=== PATIENT | male | born 1990 | race Caucasian/White ===

== ENCOUNTER → 2020-05-05 | Outpatient (CLI) | payer OTHER ==
--- NOTE | 2020-05-05 21:33 | NM ---
EXAMINATION TYPE: NM hepatobiliary w EF DATE OF EXAM: 05/05/2020 COMPARISON: NONE HISTORY: Acute cholecystitis per order. Epigastric and abdominal pain with diminished appetite and vo miting. TECHNIQUE: After the intravenous administration of 5.48 mCi Tc 99m Mebrofenin hepatobiliary scintigra phy is performed. Immediate images post injection. FINDINGS: No initial images are obtained. The gallbladder is visualized within 15 minutes. The small bowel ac tivity is noted within 60 minutes. At one hour 8 ounces of oral ensure plus is given to mimic CCK an d gallbladder ejection fraction is calculated at 40 %, in the normal range. Therefore there is no sc intigraphic evidence of cystic or common bile duct obstruction to suggest acute cholecystitis or gall bladder dyskinesia. IMPRESSION: Exam is within normal limits.
== END | disposition home or self-care (01) ==
LOC: RADNMMAIN 12:55
PROVIDERS: ATTEND Family Medicine
DX: K81.0 Acute cholecystitis (principal)
CPT/HCPCS: 78226; A9537

== ENCOUNTER 2021-12-09 19:40 | Emergency (ER) | payer OTHER ==
[2021-12-09 20:58] VITALS: BP 121/74; PULSE 83; RESP 16; TEMP 97.1
[2021-12-09 21:51] LABS: Basophils % (A) 0 %; Eosinophils # (A) 0.3 k/uL (0-0.7); Eosinophils % (A) 3 %; HCT 45.5 % (39.0-53.0); HGB 15.2 gm/dL (13.0-17.5); Lymphocytes # (A) 2.4 k/uL (1.0-4.8); Lymphocytes % (A) 24 %; MCHC 33.4 g/dL (31.0-37.0); MCV 95.8 fL (80.0-100.0); Mean Platelet Volume 7.8; Monocytes # (A) 0.5 k/uL (0-1.0); Monocytes % (A) 5 %; Neutrophils # (A) 6.5 k/uL (1.3-7.7); Neutrophils % (A) 65 %; Platelet Count 302 k/uL (150-450); RBC 4.75 m/uL (4.30-5.90); RDW 13.2 % (11.5-15.5)
[2021-12-09 21:54] LABS: ALT 32 U/L (4-49); AST 35 U/L (17-59); African American GFR (CKD) >90 (>60 ml/min/1.73 sqM); Alkaline Phosphatase 130 U/L (38-126); Anion Gap 6 mmol/L; Blood Urea Nitrogen 14 mg/dL (9-20); Calcium 8.8 mg/dL (8.4-10.2); Carbon Dioxide 23 mmol/L (22-30); Chloride 106 mmol/L (98-107); Glucose 125 mg/dL (74-99); Non-African American GFR(CKD) >90 (>60 ml/min/1.73 sqM); Potassium 4.4 mmol/L (3.5-5.1); Sodium 135 mmol/L (137-145); Total Bilirubin 0.6 mg/dL (0.2-1.3); Total Protein 6.8 g/dL (6.3-8.2)
--- NOTE | 2021-12-09 22:05 | XR ---
EXAMINATION TYPE: XR KUB 3V DATE OF EXAM: 12/09/2021 CLINICAL HISTORY: pain TECHNIQUE: 3 upright views were obtained. COMPARISON: None. FINDINGS: Scattered gas is seen in non-distended small bowel loops. Gas and fecal material is seen in non-distended colon. There is no visceromegaly, pneumoperitoneum, or abnormal calcification appreciated. The lung bases are clear and the osseous structures are intact. IMPRESSION: No acute radiographic process.
[2021-12-09 22:29] LABS: Appearance,Urine Clear (Clear); Bilirubin,Urine Negative (Negative); Blood,Urine Negative (Negative); Color,Urine Yellow; Glucose,Urine (UA) Negative (Negative); Ketones,Urine Negative (Negative); Leukocyte Esterase,Urine Moderate (Negative); Mucus,Urine Few /hpf; Nitrite,Urine Negative (Negative); PH, Urine 5.5 (5.0-8.0); Protein,Urine Trace (Negative); RBC,Urine 1 /hpf (0-5); Specific Gravity,Urine 1.039 (1.001-1.035); Squamous Epithelial Cell,Urine 4 /hpf (0-4); WBC,Urine 7 /hpf (0-5)
[2021-12-09] MEDS ORDERED: KETOROLAC 15 MG/ML 1 ML VIAL IM STA ×2 (23:01→23:10)
--- NOTE | 2021-12-09 23:36 | CT ---
EXAMINATION TYPE: CT abdomen pelvis wo con DATE OF EXAM: 12/09/2021 COMPARISON: None HISTORY: ABDOMINAL/BACK PAIN CT DLP: 2254.4 mGycm Automated exposure control for dose reduction was used. Images obtained from the diaphragm through the floor of the pelvis without contrast. The lung bases are clear. There is no pleural effusion. Heart size is normal. No pericardial effusion . Liver spleen stomach pancreas gallbladder appear intact. Bile ducts are not dilated. There is no adre nal mass. Kidneys of normal size. There is no hydronephrosis. Ureters are not dilated. There is no re troperitoneal adenopathy. The bladder distends smoothly. There is no inguinal hernia. No free fluid i n the pelvis. No pelvic mass. Appendix is posterior and appears normal. The lumbar vertebra show normal spacing and alignment. Posterior elements are intact there is no comp ression fracture. Bony pelvis appears intact. Hip joints are intact. Sacroiliac joints appear normal. IMPRESSION: Negative CT scan of the abdomen and pelvis. Normal appendix.
[2021-12-10] MEDS ORDERED: BACLOFEN 10 MG TAB PO STA (00:08)
--- NOTE | 2021-12-10 00:12 | ED ---
General Adult HPI - General Chief complaint: Urogenital Stated complaint: Back pain Time Seen by Provider: 12/09/21 22:38 Source: patient Mode of arrival: ambulatory Limitations: no limitations - History of Present Illness Initial comments: Patient is a 31-year-old male who presents with a chief complaint of back pain. Patient states the back pain started yesterday. No recent injury. The pain is intermittent, left-sided with radiation to the left flank. Patient states he was diagnosed with a urinary tract infection 4 days ago at an urgent care. He states he was given doxycycline for urinary tract infection but has not picked up the medication yet. Patient denies history of UTI, kidney infection, and kidney stone. He denies fever, chills, and blood in the urine. Patient states the burning with urination he was originally experiencing is improving. Patient denies penile discharge. He has no concern for STIs. - Related Data Previous Rx's Medication Instructions Recorded Baclofen 10 mg PO TID 5 Days #15 tab 12/10/21 Allergies Allergy/AdvReac Type Severity Reaction Status Date / Time No Known Allergies Allergy Verified 12/09/21 20:58 Review of Systems ROS Statement: Those systems with pertinent positive or pertinent negative responses have been documented in the HPI. ROS Other: All systems not noted in ROS Statement are negative. Past Medical History Past Medical History: No Reported History History of Any Multi-Drug Resistant Organisms: None Reported Past Surgical History: No Surgical Hx Reported Past Psychological History: Anxiety, Depression Smoking Status: Current every day smoker Past Alcohol Use History: Occasional Past Drug Use History: Marijuana General Exam Limitations: no limitations General appearance: alert, in no apparent distress Head exam: Present: atraumatic, normocephalic, normal inspection Eye exam: Present: normal appearance, PERRL, EOMI. Absent: scleral icterus, conjunctival injection, periorbital swelling Neck exam: Present: normal inspection, full ROM Respiratory exam: Present: normal lung sounds bilaterally. Absent: respiratory distress, wheezes, rales, rhonchi, stridor Cardiovascular Exam: Present: regular rate, normal rhythm, normal heart sounds. Absent: systolic murmur, diastolic murmur, rubs, gallop, clicks GI/Abdominal exam: Present: soft, normal bowel sounds. Absent: distended, tenderness, guarding, rebound, rigid Back exam: Present: normal inspection, full ROM, CVA tenderness (L), paraspinal tenderness (Left lumbar). Absent: CVA tenderness (R), muscle spasm, vertebral tenderness Neurological exam: Present: alert, oriented X3, CN II-XII intact Psychiatric exam: Present: normal affect, normal mood Skin exam: Present: warm, dry, intact, normal color. Absent: rash Course Vital Signs 12/09/21 20:55 Temperature 97.1 F L Pulse Rate 83 Respiratory 16 Rate Blood Pressure 121/74 O2 Sat by Pulse 97 Oximetry Medical Decision Making - Medical Decision Making This is a 31-year-old male who presents with left back/flank pain after urinary tract infection diagnosis 4 days ago. Thorough history and examination were performed. Patient is afebrile. Normal pulse at 83. Patient has not started hi s doxycycline prescription yet urgent care. Patient reports improved dysuria. Urinalysis shows moderate leukocyte esterase and [address] of the abdomen and pelvis without contrast was obtained to rule out kidney stone and infection which was negative. Patient will be discharged with baclofen prescription for potential muscle strain. He was encouraged to take his previously prescribed doxycycline for urinary tract infection. Of note, patient asked for a GI referral for prior gallbladder issues. Patient states he had prior HIDA scan and was supposed to get his gallbladder removed but went to longterm. He states that he is not satisfied with his current GI specialist is seeking a new one. He is not experiencing gallbladder symptoms currently. Patient was referred to Dr. Burgess. Dr. Gibson is my attending. - Lab Data Result diagrams: 12/09/21 21:31 12/09/21 21:31 Lab Results 12/09/21 12/09/21 12/09/21 Range/Units 20:58 21:31 21:31 WBC 10.0 (3.8-10.6) k/uL RBC 4.75 (4.30-5.90) m/uL Hgb 15.2 (13.0-17.5) gm/dL Hct 45.5 (39.0-53.0) % MCV 95.8 (80.0-100.0) fL MCH 32.0 (25.0-35.0) pg MCHC 33.4 (31.0-37.0) g/dL RDW 13.2 (11.5-15.5) % Plt Count 302 (150-450) k/uL MPV 7.8 Neutrophils % 65 % Lymphocytes % 24 % Monocytes % 5 % Eosinophils % 3 % Basophils % 0 % Neutrophils # 6.5 (1.3-7.7) k/uL Lymphocytes # 2.4 (1.0-4.8) k/uL Monocytes # 0.5 (0-1.0) k/uL Eosinophils # 0.3 (0-0.7) k/uL Basophils # 0.0 (0-0.2) k/uL Sodium 135 L (137-145) mmol/L Potassium 4.4 (3.5-5.1) mmol/L Chloride 106 (98-107) mmol/L Carbon Dioxide 23 (22-30) mmol/L Anion Gap 6 mmol/L BUN 14 (9-20) mg/dL Creatinine 0.64 L (0.66-1.25) mg/dL Est GFR (CKD-EPI)AfAm >90 (>60 ml/min/1.73 sqM) Est GFR (CKD-EPI)NonAf >90 (>60 ml/min/1.73 sqM) Glucose 125 H (74-99) mg/dL Calcium 8.8 (8.4-10.2) mg/dL Total Bilirubin 0.6 (0.2-1.3) mg/dL AST 35 (17-59) U/L ALT 32 (4-49) U/L Alkaline Phosphatase 130 H (38-126) U/L Total Protein 6.8 (6.3-8.2) g/dL Albumin 4.0 (3.5-5.0) g/dL Urine Color Yellow Urine Appearance Clear (Clear) Urine pH 5.5 (5.0-8.0) Ur Specific [place] 1.039 H (1.001-1.035) Urine Protein Trace H (Negative) Urine Glucose (UA) Negative (Negative) Urine Ketones Negative (Negative) Urine Blood Negative (Negative) Urine Nitrite Negative (Negative) Urine Bilirubin Negative (Negative) Urine Urobilinogen 2.0 (<2.0) mg/dL Ur Leukocyte Esterase Moderate H (Negative) Urine RBC 1 (0-5) /hpf Urine WBC 7 H (0-5) /hpf Ur Squamous Epith Cells 4 (0-4) /hpf Urine Mucus Few H (None) /hpf Disposition Clinical Impression: Flank pain, Low back pain Disposition: HOME SELF-CARE Condition: Good Instructions (If sedation given, give patient instructions): Urinary Tract Infection in Men (ED), Back Pain (ED) Additional Instructions: Please take medication as directed. Do not drink alcohol or operate machinery while taking baclofen. Taking an anti-inflammatory such as Motrin may help the pain as well. It is important you start and finish your doxycycline prescription for urinary tract infection. Return to the emergency department if you experience new, concerning, or worsening symptoms. Prescriptions: Baclofen 10 mg PO TID 5 Days #15 tab Is patient prescribed a controlled substance at d/c from ED?: No Referrals: None,Stated [Primary Care Provider] - 1-2 days Thelma Burgess MD [STAFF PHYSICIAN] - 1-2 days Time of Disposition: 00:11
== END 2021-12-10 00:30 | disposition home or self-care (01) ==
LOC: EC 19:40
DX: M54.59 Other low back pain (principal); R10.9 Unspecified abdominal pain; F41.9 Anxiety disorder, unspecified; F32.A Depression, unspecified; F17.200 Nicotine dependence, unspecified, uncomplicated; F12.90 Cannabis use, unspecified, uncomplicated
CPT/HCPCS: 99284; 96372; 36415; 80053; 85025; 81001; 74018; 74176; J1885

== ENCOUNTER → 2022-04-29 | Outpatient (CLI) | payer OTHER ==
[2022-04-29 18:23] LABS: Basophils # (A) 0.04 X 10*3/uL (0.00-0.10); Basophils % (A) 0.4 %; Eosinophils # (A) 0.12 X 10*3/uL (0.04-0.35); Eosinophils % (A) 1.3 %; HCT 43.1 % (39.6-50.0); HGB 14.5 g/dL (13.0-17.0); Immature Grans, Automated 0.6 %; Lymphocytes # (A) 1.96 X 10*3/uL (0.90-5.00); MCH 31.5 pg (27.0-32.0); MCHC 33.6 g/dL (32.0-37.0); MCV 93.5 fL (80.0-97.0); Mean Platelet Volume 10.8 fL (9.5-12.2); Monocytes % (A) 6.4 %; NRBC Per 100 WBC 0 /100 WBCS (0.0-0.0); Neutrophils # (A) 6.57 X 10*3/uL (1.80-7.70); Neutrophils % (A) 70.3 %; Platelet Count 293 X 10*3/uL (140-440); RBC 4.61 X 10*6/uL (4.40-5.60); RDW 13.1 % (11.5-14.5); WBC 9.35 X 10*3/uL (4.50-10.00)
[2022-04-29 18:43] LABS: ALT 27 U/L (10-49); AST 19 U/L (14-35); African American GFR (CKD) 145.3 (60.0-200.0); Albumin 4.2 g/dL (3.8-4.9); Albumin/Globulin Ratio 2.28 (1.60-3.17); Alkaline Phosphatase 134 U/L (41-126); BUN/Creat Ratio 14.96 Ratio (12.00-20.00); Blood Urea Nitrogen 10.2 mg/dL (9.0-27.0); Carbon Dioxide 24.4 mmol/L (20.0-27.5); Chloride 104 mmol/L (96-109); Chol/HDL Ratio 3.84 Ratio; Globulin 1.8 g/dL (1.6-3.3); Glucose 119 mg/dL (70-110); LDL Cholesterol,Calculated 104.7 mg/dL (0.0-131.0); Non-African American GFR(CKD) 125.3 (60.0-200.0); Potassium 4.9 mmol/L (3.5-5.5); Sodium 139 mmol/L (135-145); VLDL Calculation 15.84 mg/dL (5.00-40.00)
== END | disposition home or self-care (01) ==
LOC: LABWHC1 10:03
PROVIDERS: ATTEND Family Medicine
DX: Z00.00 Encounter for general adult medical examination without abnormal findings (principal)
CPT/HCPCS: 36415; 80053; 80061; 84439; 84443; 85025; 86803

== ENCOUNTER → 2022-04-29 | Outpatient (CLI) | payer OTHER ==
--- NOTE | 2022-04-29 18:02 | XR ---
EXAMINATION TYPE: XR chest 2V DATE OF EXAM: 04/29/2022 COMPARISON: None HISTORY: 32-year-old male J45.909, uncomplicated, unspecified asthma. TECHNIQUE: Frontal and lateral views FINDINGS: The cardiomediastinal silhouette, aorta, and pulmonary vasculature are within normal limits. Lungs an d pleural spaces are clear. IMPRESSION: No acute cardiopulmonary process.
== END | disposition home or self-care (01) ==
LOC: RADXRMAIN 09:42
PROVIDERS: ATTEND Family Medicine
DX: J45.909 Unspecified asthma, uncomplicated (principal)
CPT/HCPCS: 71046

== ENCOUNTER → 2023-06-12 | Outpatient (CLI) | payer OTHER ==
--- NOTE | 2023-06-12 13:13 | XR ---
EXAMINATION TYPE: XR lumbar spine 2 or 3V DATE OF EXAM: 06/12/2023 CLINICAL HISTORY: pain TECHNIQUE: Three views of the lumbar spine are submitted. COMPARISON: CT abdomen pelvis 12/09/2021 FINDINGS: There are 6 lumbar type vertebral bodies identified. The lumbar spine shows satisfactory alignment w ithout evidence of acute fracture or dislocation. Vertebral body heights are within normal limits. Mild disc space narrowing with endplate grossly anterior osteophytosis at L1-L2. The overlying soft tissue appears unremarkable. IMPRESSION: 1. No acute fracture. 2. Mild degenerative disc disease at L1-L2.
--- NOTE | 2023-06-12 15:38 | XR ---
EXAMINATION TYPE: XR cervical spine limited DATE OF EXAM: 06/12/2023 3:15 PM INDICATION: Patient age:Male; 33 years old; Reason for study: M54.12 radiculopathy cervical; PHH. COMPARISON: None TECHNIQUE: The cervical spine was imaged in frontal, lateral, swimmer's, and odontoid projections. Fr ontal, lateral, odontoid and bilateral oblique. FINDINGS: The osseous structures show normal alignment without evidence of an acute fracture. The intervertebra l disk spaces are preserved. Pedicles are intact. Soft tissues are within normal limits. The odonto id appears intact. IMPRESSION: No fracture or dislocation.
== END | disposition home or self-care (01) ==
LOC: RADXRMAIN 12:35
PROVIDERS: ATTEND Family Medicine
DX: M51.16 Intervertebral disc disorders with radiculopathy, lumbar region (principal)
CPT/HCPCS: 72040; 72100

== ENCOUNTER 2023-11-06 06:33 | Day surgery (SDC) | payer OTHER ==
[2023-11-06] MEDS ORDERED: LIDOCAINE 1% (10MG/ML) FOR IV START INTRADERMA PRN (07:01)
[2023-11-06] MEDS ORDERED: ONDANSETRON 4 MG/2 ML VIAL IVP PRN (07:01)
[2023-11-06] MEDS: LACTATED RINGERS 1,000 ML IV SCH (07:24)
[2023-11-06] MEDS ORDERED: LIDOCAINE 2% (PF) 20 MG/ML 5 ML VIAL ONE (07:30)
[2023-11-06] MEDS ORDERED: PROPOFOL 10 MG/ML 20 ML VIAL IV ONE (07:30)
[2023-11-06] MEDS ORDERED: fentaNYL (PF) 50 MCG/ML 2 ML AMP ONE (07:30)
--- NOTE | 2023-11-06 07:35 | P.GSHP ---
History of Present Illness H&P Date: 11/06/23 CHIEF COMPLAINT: GERD HISTORY OF PRESENT ILLNESS: The patient is a 33-year-old male who presents reports gastroesophageal reflux disease. Upper endoscopy was offered for further evaluation and management. PAST MEDICAL HISTORY: Please see list. PAST SURGICAL HISTORY: Please see list. MEDICATIONS: Please see list. ALLERGIES: Please see list. SOCIAL HISTORY: No illicit drug use FAMILY HISTORY: No reports of Crohn disease or ulcerative colitis. REVIEW OF ORGAN SYSTEMS: CONSTITUTIONAL: No reports of fevers or chills. GI: Denies any blood in stools or constipation. PHYSICAL EXAM: VITAL SIGNS: Stable GENERAL: Well-developed and pleasant in no acute distress. HEENT: No scleral icterus. Extraocular movements grossly intact. Moist buccal mucosa. NECK: Supple without lymphadenopathy. CHEST: Unlabored respirations. Equal bilateral excursions. CARDIOVASCULAR: Regular rate and rhythm. Distal 2+ pulses. ABDOMEN: Soft, nondistended. MUSCULOSKELETAL: No clubbing, cyanosis, or edema. ASSESSMENT: 1. Gastroesophageal reflux disease PLAN: 1. Recommend proceeding with an upper endoscopy Past Medical History Past Medical History: Osteoarthritis (OA) Additional Past Medical History / Comment(s): Bariatric workup, lower back History of Any Multi-Drug Resistant Organisms: None Reported Past Surgical History: No Surgical Hx Reported Additional Past Surgical History / Comment(s): Facial plastic surgery Past Anesthesia/Blood Transfusion Reactions: No Reported Reaction Smoking Status: Current every day smoker - Past Family History Mother Family Medical History: Cancer, COPD Additional Family Medical History / Comment(s): Smoker Father Family Medical History: Coronary Artery Disease (CAD), Myocardial Infarction ([place]) Additional Family Medical History / Comment(s): CABG, pacemaker, obesity Medications and Allergies Home Medications Medication Instructions Recorded Confirmed Type Albuterol Inhaler [Ventolin Hfa 1 - 2 puff INHALATION Q6H PRN 11/03/23 11/06/23 History Inhaler] Allergies Allergy/AdvReac Type Severity Reaction Status Date / Time No Known Allergies Allergy Verified 11/06/23 07:10 Surgical - Exam Vital Signs Temp Pulse Resp BP Pulse Ox 97.2 F L 71 18 129/71 97 11/06/23 07:11 11/06/23 07:11 11/06/23 07:11 11/06/23 07:11 11/06/23 07:11
[2023-11-06 07:41] VITALS: TEMP 97.2
--- NOTE | 2023-11-06 07:54 | P.PCN ---
Date of Procedure: 11/06/23 Description of Procedure: PREOPERATIVE DIAGNOSIS: Gastroesophageal reflux disease. Morbid obesity. POSTOPERATIVE DIAGNOSIS: Gastroesophageal reflux disease. Morbid obesity. Gastritis acute on chronic without bleeding Gastric ulcers without bleeding, acute OPERATION: Esophagogastroduodenoscopy with biopsies along esophagus, antrum and duodenum SURGEON: Cassandra Ayers MD ANESTHESIA: MAC. INDICATIONS: The patient is a 33-year-old male who presents with reflux disease. Benefits and risks of the procedure were described. Informed consent was obtained. DESCRIPTION: The patient was brought into the endoscopy suite and laid in the left lateral decubitus position. An Olympus gastroscope was passed along the posterior oropharynx down to the distal esophagus where the squamocolumnar junction was encountered at 45 cm from the incisors. The stomach was entered and no bile reflux was found. Additional findings are listed below. Biopsies with cold forceps were obtained of the antrum. The first through third portion of the duodenum was examined. Retroflexion of the scope confirmed Hill grade 1 lower esophageal valve. The squamocolumnar junction demonstrated LA grade B erosive esophagitis. The stomach was desufflated. The patient tolerated the procedure well. FINDINGS: Squamocolumnar junction 45 cm from the incisors. Diaphragmatic hiatus at 45 cm. Hill grade 1 lower esophageal valve. LA grade B erosive esophagitis. Biopsies obtained Retained food along gastric cardia questionable for gastroparesis Acute gastric ulcer at gastric cardia and antrum, without bleeding Acute gastritis without bleeding, biopsies obtained Biopsies obtained of the duodenum. RECOMMENDATIONS: Omeprazole 40 mg daily for 2 to 4 weeks Upper endoscopy as needed. Plan - Discharge Summary Discharge Rx Participant: No New Discharge Prescriptions: New Omeprazole [PriLOSEC] 40 mg PO DAILY #14 cap Continue Albuterol Inhaler [Ventolin Hfa Inhaler] 1 - 2 puff INHALATION Q6H PRN PRN Reason: Wheezing Discharge Medication List Albuterol Inhaler [Ventolin Hfa Inhaler] 1 - 2 puff INHALATION Q6H PRN 11/03/23 [History] Omeprazole [PriLOSEC] 40 mg PO DAILY #14 cap 11/06/23 [Rx] Follow up Appointment(s)/Referral(s): [place], [place] [NON-STAFF] - 11/29/23 Patient Instructions/Handouts: Peptic Ulcer (DC) Discharge Disposition: HOME SELF-CARE
[2023-11-06 08:16] VITALS: BP 124/73; PULSE 67; RESP 16
== END 2023-11-06 08:27 | disposition home or self-care (01) ==
LOC: ORWHC2ENDO 06:33
PROVIDERS: ATTEND Surgery Plastic and Reconstructive Surgery
DX: K29.50 Unspecified chronic gastritis without bleeding (principal); K21.9 Gastro-esophageal reflux disease without esophagitis; M19.90 Unspecified osteoarthritis, unspecified site; F17.200 Nicotine dependence, unspecified, uncomplicated; F32.A Depression, unspecified; Z68.42 Body mass index [BMI] 45.0-49.9, adult; E66.01 Morbid (severe) obesity due to excess calories; Z82.49 Family history of ischemic heart disease and other diseases of the circulatory system; Z83.49 Family history of other endocrine, nutritional and metabolic diseases; Z79.51 Long term (current) use of inhaled steroids; Z98.890 Other specified postprocedural states
CPT/HCPCS: 43239; J3010; J2704; J2001; 88305

== ENCOUNTER → 2023-11-29 | Outpatient (CLI) | payer OTHER ==
[2023-11-29 16:41] VITALS: BP 120/88; PULSE 76; TEMP 97.7; BMI 51.7
--- NOTE | 2023-11-29 17:14 | P.BASOAP ---
Subjective Progress Note Date: 11/29/23 He did not do EKG, or labs. EGD done. Looking into sleeve. Food journal pending. Objective - Vital Signs Vital signs: Vital Signs Temp 97.7 F 11/29/23 16:25 Pulse 76 11/29/23 16:25 Resp BP 120/88 11/29/23 16:25 Pulse Ox FiO2 Intake & Output 11/28/23 11/29/23 11/29/23 18:59 06:59 18:59 Weight 168.147 kg Assessment/Plan Plan: Date: 11/29/23 Initial Weight: 167.829 kg Initial BMI: 51.5 Current Weight: 168.147 kg Current BMI: 51.7 Type of Surgery: Total Volume in Band: Previous Volume: Volume Removed: Volume Added: Band Size:
== END ==
LOC: BARWHC3 16:11
PROVIDERS: ATTEND Surgery Plastic and Reconstructive Surgery
DX: E66.01 Morbid (severe) obesity due to excess calories (principal); Z53.9 Procedure and treatment not carried out, unspecified reason
CPT/HCPCS: 99211

== ENCOUNTER → 2023-12-04 | Outpatient (CLI) | payer OTHER ==
[2023-12-04 15:05] LABS: INR 0.9 (<1.2); Partial Thromboplastin Time 24.3 sec (22.0-30.0); Prothrombin Time 10.3 sec (10.0-12.5)
[2023-12-04 20:05] LABS: HCT 44.7 % (39.6-50.0); MCH 30.8 pg (27.0-32.0); MCHC 33.6 g/dL (32.0-37.0); MCV 91.8 FL (80.0-97.0); Mean Platelet Volume 11.4 FL (9.5-12.2); NRBC Per 100 WBC 0 X 10*3/uL (0.00-0.01); Platelet Count 287 X 10*3/uL (140-440); RBC 4.87 X 10*6/uL (4.40-5.60); RDW 12.6 % (11.5-14.5); WBC 7.92 X 10*3/uL (4.50-10.00)
[2023-12-04 22:43] LABS: Prealbumin 14.7 mg/dL (18.0-42.0)
[2023-12-04 23:03] LABS: % Iron Saturation 39.26 (15.00-50.00); ALT 36 U/L (10-49); AST 25 U/L (14-35); Alkaline Phosphatase 139 U/L (41-126); Blood Urea Nitrogen 9.8 mg/dL (9.0-27.0); Calcium 9.2 mg/dL (8.7-10.3); Carbon Dioxide 21.7 mmol/L (21.6-31.8); Chloride 104 mmol/L (96-109); Chol/HDL Ratio 3.06 Ratio; Globulin 2.1 g/dL (1.6-3.3); Glucose 129 mg/dL (70-110); Iron 117 UG/DL (65-175); LDL Cholesterol,Calculated 94.1 mg/dL (0.0-131.0); Magnesium 1.8 mg/dL (1.5-2.4); Phosphorus 3.1 mg/dL (2.4-5.1); Potassium 4.7 mmol/L (3.5-5.5); Sodium 139 mmol/L (135-145); Total Bilirubin 0.6 mg/dL (0.3-1.2); Total Iron Binding Capacity 298 UG/DL (228-460); Total Protein 6.1 g/dL (6.2-8.2)
[2023-12-05 13:08] LABS: Zinc, Serum 93 ug/dL (60-130)
== END | disposition home or self-care (01) ==
LOC: LABWHC1 13:45
PROVIDERS: ATTEND Surgery Plastic and Reconstructive Surgery
DX: E66.01 Morbid (severe) obesity due to excess calories (principal); E89.1 Postprocedural hypoinsulinemia; D50.8 Other iron deficiency anemias; K91.2 Postsurgical malabsorption, not elsewhere classified; E44.0 Moderate protein-calorie malnutrition; E44.1 Mild protein-calorie malnutrition; E45 Retarded development following protein-calorie malnutrition; E46 Unspecified protein-calorie malnutrition; E55.9 Vitamin D deficiency, unspecified; K74.1 Hepatic sclerosis; N19 Unspecified kidney failure; T56.894A Toxic effect of other metals, undetermined, initial encounter; K50.90 Crohn's disease, unspecified, without complications; R94.31 Abnormal electrocardiogram [ECG] [EKG]
CPT/HCPCS: 36415; 80053; 80061; 82306; 82525; 82607; 82728; 82746; 83036; 83540; 83550; 83735; 83970; 84100; 84134; 84255; 84425; 84443; 84590; 84630; 85027; 85610; 85730; 93005

== ENCOUNTER → 2023-12-13 | Outpatient (CLI) | payer OTHER ==
--- NOTE | 2023-12-13 09:08 | NM ---
EXAMINATION TYPE: NM hepatobiliary w EF DATE OF EXAM: 12/13/2023 COMPARISON: NONE CLINICAL INDICATION: Male, 33 years old with history of R10.11 RIGHT UPPER QUADRANT PAIN; TECHNIQUE: After the intravenous administration of 5.2 mCi Tc 99m Mebrofenin hepatobiliary scintigrap hy is performed. Immediate images post injection. FINDINGS: There is satisfactory initial accumulation of tracer by the liver. The gallbladder is visualized wit hin 8 minutes. The small bowel activity is noted within 8 minutes. At one hour 8 ounces of oral ens ure plus is given to mimic CCK and gallbladder ejection fraction is calculated at 85 %, in the normal range. Therefore there is no scintigraphic evidence of cystic or common bile duct obstruction to hernandez ggest acute cholecystitis or gallbladder dyskinesia. IMPRESSION: Exam is within normal limits.
== END | disposition home or self-care (01) ==
LOC: RADNMMAIN 06:38
PROVIDERS: ATTEND Surgery Plastic and Reconstructive Surgery
DX: R10.11 Right upper quadrant pain (principal)
CPT/HCPCS: 78226; A9537

== ENCOUNTER → 2023-12-14 | Outpatient (CLI) | payer OTHER ==
--- NOTE | 2023-12-14 10:18 | US ---
EXAMINATION TYPE: US gallbladder DATE OF EXAM: 12/14/2023 COMPARISON: NONE CLINICAL INDICATION: Male, 33 years old with history of R10.11 RIGHT UPPER QUADRANT PAIN; RUQ pain x several years TECHNIQUE: Multiple sonographic images of the right upper quadrant are obtained. FINDINGS: EXAM MEASUREMENTS: Liver Length: 21.0 cm Gallbladder Wall: 0.2 cm CBD: 0.4 cm Right Kidney: 11.7x4.9x7.1 cm Pancreas: Tail obscured by overlying bowel gas Liver: Enlarged, Increased attenuation, decreased visualization of vessels suggestive of fatty infil trate Gallbladder: wnl Evidence for sonographic Wheat's sign: No CBD: wnl Right Kidney: No hydronephrosis or masses seen exam limited by attenuation from the liver, body habitus, and bowel gas IMPRESSION: 1. Limited exam due to the patient's body habitus and bowel gas. 2. Incomplete visualization of the pancreas due to bowel gas. 3. Normal gallbladder and negative sonographic Wheat sign. 4. Hepatomegaly with increased liver attenuation consistent with diffuse steatosis
== END | disposition home or self-care (01) ==
LOC: RADUSWWP 07:03
PROVIDERS: ATTEND Surgery Plastic and Reconstructive Surgery
DX: R16.0 Hepatomegaly, not elsewhere classified (principal); R14.3 Flatulence; K76.0 Fatty (change of) liver, not elsewhere classified
CPT/HCPCS: 76705

== ENCOUNTER → 2023-12-18 | Outpatient (CLI) | payer OTHER ==
[2023-12-18 15:20] VITALS: BMI 52.2
== END ==
LOC: BARWHC3 13:04
PROVIDERS: ATTEND Surgery Plastic and Reconstructive Surgery
DX: E66.01 Morbid (severe) obesity due to excess calories (principal); Z71.3 Dietary counseling and surveillance; Z68.43 Body mass index [BMI] 50.0-59.9, adult
CPT/HCPCS: 97804

== ENCOUNTER → 2024-04-01 | Outpatient (CLI) | payer OTHER | END | disposition home or self-care (01) | LOC: LABWHC1 16:18 | PROVIDERS: ATTEND Surgery Plastic and Reconstructive Surgery | DX: Z01.812 Encounter for preprocedural laboratory examination (principal) | CPT/HCPCS: 86850; 86900; 86901 ==

== ENCOUNTER 2024-04-05 16:00 | Inpatient (IN) | payer OTHER ==
[~2024-04-05 16:00] MED LIST: ACETAMINOPHEN TAB 500 MG TAB ONE; ALVIMOPAN 12 MG CAPSULE ONE; DEXAMETHASONE SOD PHOSPHATE 4 MG/ML 1 ML VIAL ONE; ENOXAPARIN 40 MG/0.4 ML SYRINGE SQ ONE; FAMOTIDINE 20 MG/2 ML VIAL ONE; ONDANSETRON 4 MG/2 ML VIAL ONE; SCOPOLAMINE 1 MG/72 HR PATCH TRANSDERM ONE
[2024-04-05] MEDS ORDERED: LACTATED RINGERS 1,000 ML BAG ONE (18:00)
[2024-04-05] MEDS ORDERED: LIDOCAINE 1%-EPI 1:100,000 20 ML VIAL ONE (18:00)
[2024-04-05] MEDS ORDERED: MIDAZOLAM 2 MG/2 ML VIAL ONE (18:02)
[2024-04-05] MEDS ORDERED: NEOSTIGMINE 1 MG/ML 10 ML VIAL ONE (18:02)
[2024-04-05] MEDS ORDERED: HYDROmorphone (PF) 1 MG/ML ONE (18:02)
[2024-04-05] MEDS ORDERED: PROPOFOL 10 MG/ML 20 ML VIAL IV ONE (18:02)
[2024-04-05] MEDS ORDERED: LIDOCAINE 1% INJ 10MG/ML (20 ML MDV) ONE (18:02)
[2024-04-05] MEDS ORDERED: fentaNYL (PF) 50 MCG/ML 2 ML AMP ONE (18:02)
[2024-04-05] MEDS ORDERED: INDOCYANINE GREEN 25 MG VIAL IV ONE (18:02)
[2024-04-05] MEDS ORDERED: ceFAZolin 1 GM/50 ML BAG (PMX) ONE (18:02)
[2024-04-05] MEDS ORDERED: GLYCOPYRROLATE 0.2 MG/ML 2 ML VIAL ONE (18:02)
[2024-04-05] MEDS ORDERED: SUCCINYLCHOLINE CHLORIDE 200 MG/10 ML VIAL IV ONE (18:02)
[2024-04-05] MEDS ORDERED: ROCURONIUM 10 MG/ML (5 ML VIAL) IV ONE (18:02)
[2024-04-05] MEDS ORDERED: HYDROmorphone 0.5 MG/0.5 ML SYRINGE ONE ×2 (20:46→20:56)
[2024-04-05] MEDS ORDERED: ONDANSETRON 4 MG/2 ML VIAL ONE (22:42)
[2024-04-05] MEDS ORDERED: DEXAMETHASONE SOD PHOSPHATE 4 MG/ML 1 ML VIAL ONE (22:42)
[2024-04-05] MEDS ORDERED: ACETAMINOPHEN IV (For NPO) 100 ML ONE (22:43)
[2024-04-05] MEDS ORDERED: HYDROmorphone 1 MG/ML 1 ML SYRINGE ONE (23:38)
[2024-04-06] MEDS ORDERED: DEXAMETHASONE SOD PHOSPHATE 10 MG/ML 1 ML VIAL ONE (02:29)
[2024-04-06] MEDS ORDERED: METOCLOPRAMIDE 5 MG/ML 2 ML VIAL ONE ×3 (02:29→21:41)
[2024-04-06] MEDS ORDERED: HYDROmorphone 1 MG/ML 1 ML SYRINGE ONE ×6 (02:42→22:49)
[2024-04-06] MEDS ORDERED: DEXAMETHASONE SOD PHOSPHATE 4 MG/ML 1 ML VIAL ONE ×3 (06:17→16:58)
[2024-04-06] MEDS ORDERED: ACETAMINOPHEN IV (For NPO) 100 ML ONE ×3 (06:18→16:56)
[2024-04-06] MEDS ORDERED: ENOXAPARIN 40 MG/0.4 ML SYRINGE SQ ONE (08:53)
[2024-04-06] MEDS ORDERED: ONDANSETRON 4 MG/2 ML VIAL ONE ×2 (08:54→16:56)
[2024-04-06] MEDS ORDERED: PANTOPRAZOLE 40 MG/10 ML VIAL ONE ×2 (08:55→21:42)
[2024-04-07] MEDS ORDERED: HYDROmorphone 1 MG/ML 1 ML SYRINGE ONE ×2 (02:29→10:10)
[2024-04-07] MEDS ORDERED: ONDANSETRON 4 MG/2 ML VIAL ONE (07:32)
[2024-04-07] MEDS ORDERED: DEXAMETHASONE SOD PHOSPHATE 4 MG/ML 1 ML VIAL ONE (07:32)
[2024-04-07] MEDS ORDERED: bisacodyL 5 MG TABLET.DR PO ONE (10:09)
[2024-04-07] MEDS ORDERED: ENOXAPARIN 40 MG/0.4 ML SYRINGE SQ ONE (10:09)
[2024-04-07] MEDS ORDERED: PANTOPRAZOLE 40 MG/10 ML VIAL ONE (10:09)
--- NOTE | 2024-07-04 21:36 | P.GSHP ---
History of Present Illness H&P Date: 04/05/24 CHIEF COMPLAINT: Morbid obesity and cholecystitis HISTORY OF PRESENT ILLNESS: Kong Myles is a 34-year-old male who comes with lifelong morbid obesity. As result of morbid obesity, he has developed diabetes type 2, hypertensive heart disease, obstructive sleep apnea, hyperlipidemia, osteoarthritis of the hips and knees. He has completed medical supervised weight loss. He completed medical including cardiac assessment. He has completed psychological risk assessment. All surgical options were reviewed. He elected for sleeve gastrectomy. Additionally, patient complains of worsening epigastric and right upper quadrant abdominal pain. Diagnostic studies demonstrated gallstones. He presents for cholecystectomy as well. At height of 5 feet 11 inches, ideal body weight is 178 pounds. He comes in 375 pounds. His body mass index is 52.3. He is 197 pounds overweight. PAST MEDICAL HISTORY: 1. Morbid obesity due to excess calories 2. Body mass index of 52.3 3. Osteoarthritis of the knees. 4. Osteoarthritis of the lower back. 5. Hypertensive heart disease. 6. Gastroesophageal reflux disease 7. Hyperlipidemia 8. Obstructive sleep apnea 9. Diabetes type 2, non-insulin dependent 10. Fatty liver disease 11. Bipolar disorder 12. Depressive disorder PAST SURGICAL HISTORY: 1. Upper endoscopy HOME MEDICATIONS: Reviewed ALLERGIES: Reviewed SOCIAL HISTORY: Past tobacco use. FAMILY HISTORY: No family history of ulcerative colitis disease or Crohn's disease. Family history of morbid obesity. No lupus in the family. No reports of stomach or esophageal cancer. Family history of cholecystitis REVIEW OF ORGAN SYSTEMS: CONSTITUTIONAL:At height of 5 feet 11 inches, ideal body weight is 178 pounds. He comes in 375 pounds. His body mass index is 52.3. He is 197 pounds overweight. HEENT: Denies any active troubles with vision or hearing. ENDOCRINE: Has diabetes. Has hypothyroidism. CARDIOVASCULAR: Past reports of palpitations or heart attacks or chest pain. RESPIRATORY: Has daytime somnolence. GASTROINTESTINAL: Denies any bright red blood per rectum. Has gastroesophageal reflux disease. MUSCULOSKELETAL: Has lower back pain and joint pain. Has osteoarthritis of the knees. NEURO: No headaches. No seizure disorders. PSYCH: Has depression. No suicidal ideation. RHEUMATOLOGIC: No lupus. No rheumatoid arthritis. HEMATOLOGIC: Denies any abnormal bleeding or bruising. No personal history of DVTs. SKIN: Has rash. No skin cancer. PHYSICAL EXAM: VITAL SIGNS: Height 5 foot 11 inches, weight 375 pounds. BMI 52.5 GENERAL: Well-developed in no acute distress. HEENT: No scleral icterus. Extraocular movements grossly intact. Hears conversational speech. No nasal drainage. NECK: Supple without lymphadenopathy. CHEST: Nonlabored respirations with equal bilateral excursions. CARDIOVASCULAR: Regular rate and regular rhythm. Distal 2+ pulses. ABDOMEN: Obese, soft, nontender, nondistended. MUSCULOSKELETAL: No clubbing, cyanosis. NEURO: No focal or lateralizing signs. Cranial nerves 2 through 12 grossly within normal limits. PSYCH: Appropriate affect. Alert and oriented to person, place and time. SKIN: Good skin turgor. Well perfused. STUDIES: Ultrasound report independent reviewed demonstrates moderate fatty liver disease. This is my independent interpretation. REPORT: HIDA scan independent reviewed demonstrates ejection fraction 85%. ASSESSMENT: 1. Morbid obesity due to excess calories 2. Body mass index of 52.3 3. Osteoarthritis of the knees. 4. Osteoarthritis of the lower back. 5. Hypertensive heart disease. 6. Gastroesophageal reflux disease 7. Hyperlipidemia 8. Obstructive sleep apnea 9. Diabetes type 2, non-insulin dependent 10. Fatty liver disease 11. Bipolar disorder 12. Depressive disorder 13. Family history of gallbladder disease 14. Chronic cholecystitis PLAN: 1. Bariatric options between a sleeve, band and a Dre-en-Y gastric bypass were reviewed in detail. The patient elected for a sleeve gastrectomy. Robotic assisted approach described. Robotic cholecystectomy described for chronic cholecystitis. 2. The [place] [facility] Data was also reviewed with benefits and risks as described. 3. An 8 page second-generation bariatric consent form was reviewed in detail including potential of bleeding, infection, leaks, adequate weight loss, nutritional deficiencies which the patient demonstrated understanding of the risks. 4. A 2 week high-protein low caloric 800 kcal diet described to address hepatomegaly. 5. Preoperative labs including complete metabolic panel and CBC with type and screen recommended. 6. DVT prophylaxis per [place] [facility]. 7. Antibiotic prophylaxis. 8. Inpatient hospitalization anticipated for more than 2 nights. 9. All questions and concerns were addressed with the patient. 10. He is at elevated risk for perioperative complications secondary to pre- existing diabetes type 2, obstructive sleep apnea 11. Overall, patient has expressed understanding of bariatric care including postoperative diet and commitment of lifestyle. Patient should benefit from surgical intervention for correction of her morbid obesity. Past Medical History Past Medical History: Osteoarthritis (OA) Additional Past Medical History / Comment(s): Bariatric workup, lower back History of Any Multi-Drug Resistant Organisms: None Reported Past Surgical History: No Surgical Hx Reported Additional Past Surgical History / Comment(s): Facial plastic surgery Past Anesthesia/Blood Transfusion Reactions: No Reported Reaction Smoking Status: Former smoker - Past Family History Mother Family Medical History: Cancer, COPD Additional Family Medical History / Comment(s): Smoker Father Family Medical History: Coronary Artery Disease (CAD), Myocardial Infarction (OR) Additional Family Medical History / Comment(s): CABG, pacemaker, obesity Medications and Allergies Home Medications Medication Instructions Recorded Confirmed Type Albuterol Inhaler [Ventolin Hfa 1 - 2 puff INHALATION Q6H PRN 11/03/23 05/01/24 History Inhaler] Omeprazole [PriLOSEC] 40 mg PO DAILY #14 cap 11/06/23 05/01/24 Rx Budesonide/Formoterol Fumarate 1 puff INHALATION DAILY PRN 02/21/24 05/01/24 History [Symbicort 160-4.5 Mcg Inhaler] Acetaminophen 500 mg PO Q6H PRN 05/01/24 05/01/24 History Ondansetron Odt [Zofran Odt] 4 mg PO Q8HR PRN 05/01/24 05/01/24 History Ergocalciferol [Vitamin D2 (1250 50,000 unit PO WEEKLY 05/06/24 05/06/24 History Mcg = 46376 Iu)] Vitamin A 10,000 unit PO DAILY 05/06/24 05/06/24 History Allergies Allergy/AdvReac Type Severity Reaction Status Date / Time adhesive tape Allergy Rash/Hives Verified 05/01/24 15:03
--- NOTE | 2024-07-04 21:47 | P.OP ---
Date of Procedure: 04/05/24 Description of Procedure: SURGEON: CHIN HUTSON MD PREOPERATIVE DIAGNOSES: 1. Morbid obesity due to excess calories 2. Body mass index of 52.3 3. Osteoarthritis of the knees. 4. Osteoarthritis of the lower back. 5. Hypertensive heart disease. 6. Gastroesophageal reflux disease 7. Hyperlipidemia 8. Obstructive sleep apnea 9. Diabetes type 2, non-insulin dependent 10. Fatty liver disease 11. Bipolar disorder 12. Depressive disorder 13. Family history of gallbladder disease 14. Chronic cholecystitis POSTOPERATIVE DIAGNOSES: 1. Morbid obesity due to excess calories 2. Body mass index of 52.3 3. Osteoarthritis of the knees. 4. Osteoarthritis of the lower back. 5. Hypertensive heart disease. 6. Gastroesophageal reflux disease 7. Hyperlipidemia 8. Obstructive sleep apnea 9. Diabetes type 2, non-insulin dependent 10. Fatty liver disease 11. Bipolar disorder 12. Depressive disorder 13. Family history of gallbladder disease 14. Chronic cholecystitis OPERATION: 1. Robotic assisted daVinci Xi laparoscopic sleeve gastrectomy with 40-Syrian bougie, multiport. 2. Robotic assisted daVinci Xi laparoscopic cholecystectomy with FIREFLY, multiport. 3. Intraoperative esophagogastroduodenoscopy. ANESTHESIA: Gen. local anesthetic ESTIMATED BLOOD LOSS: 5 mL SPECIMENS REMOVED: Sleeve gastrectomy and gallbladder COMPLICATIONS: None. FINDINGS: 1. Negative intraoperative esophagogastrojejunoscopy leak test. 2. No hepatomegaly or large hiatus hernia. 3. Total of 7 staplers used including 4 - 60 mm green robot emely and 3 - 60 mm blue loads used to create the gastric sleeve. 4. Sleeve gastrectomy 30 x 6 cm 5. Gallbladder removed without contamination. INDICATIONS: Kong Myles is a 34-year-old male who comes with lifelong morbid obesity. As result of morbid obesity, he has developed diabetes type 2, hypertensive heart disease, obstructive sleep apnea, hyperlipidemia, osteoarthritis of the hips and knees. He has completed medical supervised weight loss. He completed medical including cardiac assessment. He has completed psychological risk assessment. All surgical options were reviewed. He elected for sleeve gastrectomy. Additionally, patient complains of worsening epigastric and right upper quadrant abdominal pain. Diagnostic studies demonstrated gallstones. He presents for cholecystectomy as well. At height of 5 feet 11 inches, ideal body weight is 178 pounds. He comes in 375 pounds. His body mass index is 52.3. He is 197 pounds overweight. All surgical options for morbid obesity had been described using the [place] [facility] collaborative comorbidity resolution including complication risk score. A second-generation bariatric consent form was described in detail including the possibility of protein malnutrition, leaks, gastric stricture, venous thrombosis, gastroesophageal reflux disease, need for further surgery for which she demonstrated understanding. Additionally she had clinical cholecystitis for which cholecystectomy was described. Benefits and risks of the procedure were described at length. Informed consent was obtained. DESCRIPTION: The patient was brought into the operating room theater. Preoperatively the patient had received Lovenox subcutaneously for DVT prophylaxis. Additionally Peridex given oral solution as an oral decontaminant. After general induction, the abdomen was prepped and draped in standard sterile fashion. An Ioban draping was placed along the abdomen. No brennan catheter was placed A robotic da Joel Xi system was prepped and primed. At 15 cm from the xiphoid, proposed port sites were marked with indelible marker along the anterior axillary line bilaterally, mid axillary line bilaterally with each ports were marked 10 to 15 cm from each other. The metallurgical laboratory assistant port was marked along the left lateral abdominal wall. The robotic stapler port was marked for the right midclavicular line. A 5 mm 0 degrees laparoscopic trocar entry was performed along the left upper quadrant. The abdomen was insufflated to 15 mmHg pressure was tolerated well. Diagnostic laparoscopy demonstrated no injury to bowel, viscera, or mesentery. The liver surface was unremarkable. No injury had occurred to the small bowel or viscera. Along the hiatus no prominent hiatal hernia. A 12 mm port was placed along the left upper abdominal wall after exchanging the 5 mm port. Another port was placed along the left lateral abdominal wall 8 mm. A separate 8 mm port was placed along the epigastrium and a 12-mm port placed along the right upper quadrant. Please note that the ports were placed at least 20 cm away from the target anatomy. Another port was placed along the right lateral abdominal wall, 8 mm trocar. Care was taken to check each robotic arms were safely away from collision with the bed or the patient. I had sat at the console. Next, 12-mm robot stapler port was placed along the right upper quadrant. The camera 8-mm port was maintained along the epigastrium. The patient was repositioned in reverse Trendelenburg position at 25-degrees after lowering the bed. The robot was docked along the right side of the patient. Using a grasper for arm 2, a hook cautery for arm 3, including grasper for arm 1, the robotic system was docked and primed as described. Instruments including Bovie cautery, vessel sealer, and staplers, and clips were interchanged by the metallurgical laboratory assistant for stapler loads. The camera was placed at 30-degrees down. Attention was brought to her gallbladder. The gallbladder fundus was retracted over the dome of the liver. Initial attention was brought to the infundibulum which was gently retracted in the inferior lateral approach. Using a grasper, the cystic duct including the cystic artery was carefully skeletonized. FIREFLY was used to identify the cystic artery and cystic structures. Large PLASTIC clips were used throughout the entire case. Using a clip sales financial analyst 2 clips were placed proximally, and 1 clip was placed distally along the cystic duct and then cauterized. Again care was taken to avoid any injury to the biliary tree as the common bile duct was clearly visualized during this portion of dissection. Next, the cystic artery was similarly clipped and cauterized. Electro-Bovie cautery was used to remove the gallbladder from the hepatic fossa. Hemostasis was checked and found to be adequate. Attention was brought to the sleeve gastrectomy portion of the case. The pylorus was identified and 4 cm proximally along the greater curvature of the stomach, the short gastrics were mobilized upwards to the angle of His using a vessel sealer. Redundant and adherent gastric cardia was addressed similarly and carefully with vessel sealer. Hemostasis was excellent during this portion of the procedure. The nursing boat person positioned a 40-Syrian blunt bougie into the stomach. Robotic stapler green and blue loads 60 mm x 7 were used to create the sleeve. Initial firing was across the antrum of the stomach towards the angle of His. The staple line was completely hemostatic and linear without corkscrewing. Hemostasis was excellent. The space from the angularis incisura of the sleeve was approximately 4 cm. I then went to the head of the bed to perform the intraoperative esophagogastroduodenoscopy leak test. The upper pole of the stomach was bathed using normal saline solution. The scope was withdrawn with careful inspection along the staple line for which no leaks were found along the entire length. Additionally, the sleeve was completely hemostatic without any encroachment along the angularis incisura. Its topology was a soft "J". No stricture was encountered upon placement of the scope. The GI tract was desufflated. The patient tolerated this portion of the procedure well. The scope was completely withdrawn. The robot was undocked. I then rescrubbed into case, whereby the irrigation fluid was aspirated from the abdominal cavity. Tisseal fibrin sealant was placed along the entire staple length. Once dried the Nancy liver retractor was removed. Attention was now brought to removal of the specimens including the gallbladder. Gallbladder was removed using Endo Catch bag. The distal end of the sleeve gastrectomy specimen was brought out through the 12 mm port at the left upper quadrant. The specimen was gently removed en total, corresponding to 30 cm x 6 cm sleeve gastrectomy specimen. No contamination had occurred during this process. All instruments and pneumoperitoneum including irrigation fluid was removed from the abdominal cavity. The 12 mm port site was irrigated with warm normal saline solution and diluted hydron peroxide. The final incisions were closed using subcuticular interrupted suture of 4-0 Monocryl. Dermabond was applied to the skin once the skin had been cleansed. OptiFoam dressing was placed along the stomach extraction site. At the end of the procedure, needle, sponge, and instrument count was verified correct by the surgical instrument repair specialist. The patient was taken to the postanesthesia care unit in stable condition. The patient had tolerated the procedure well. Intraoperative films and findings were reviewed with the patient's family.
--- NOTE | 2024-07-04 21:50 | P.DS ---
Providers Date of admission: 04/05/24 20:20 Expected date of discharge: 04/07/24 Attending physician: Cassandra Ayers Primary care physician: Stated None Hospital Course: POSTOPERATIVE DIAGNOSES: 1. Morbid obesity due to excess calories 2. Body mass index of 52.3 3. Osteoarthritis of the knees. 4. Osteoarthritis of the lower back. 5. Hypertensive heart disease. 6. Gastroesophageal reflux disease 7. Hyperlipidemia 8. Obstructive sleep apnea 9. Diabetes type 2, non-insulin dependent 10. Fatty liver disease 11. Bipolar disorder 12. Depressive disorder 13. Family history of gallbladder disease 14. Chronic cholecystitis HOSPITAL COURSE: The patient is a 34-year-old male admitted for morbid obesity. He underwent bariatric risk assessment prior to surgery including complete tobacco cessation. He underwent robotic sleeve gastrectomy, 04/05/2024 including cholecystectomy for cholecystitis. He has nausea yesterday now resolved. He is ambulating in the hallways. He is tolerating bariatric clear liquid diet. His pain is well controlled with his abdominal binder. Esophagram was deferred due to study not being available over the weekend. Bariatric discharge instructions were reviewed in detail. He is passing flatus. He reports intolerance to lemon flavors. Will need esophagram another day. Will need fluids as outpatient. DISCHARGE DIET: Bariatric diet with educational pamphlet given prior to admission. DISCHARGE ACTIVITY: Lifting restrictions 4-pounds for 4 weeks until May 06 DISCHARGE MEDICATIONS: New medications ibuprofen 600 mg TID, tylenol 1000 mg QID, simethicone 125 mg PO TID as needed, zofran 8 mg PO as needed, omeprazole 40 mg PO daily. FOLLOW-UP APPOINTMENTS: Follow-up [facility] [address] Ayers Procedures: OPERATION: 1. Robotic assisted daVinci Xi laparoscopic sleeve gastrectomy with 40-Italian bougie, multiport. 2. Robotic assisted daVinci Xi laparoscopic cholecystectomy with FIREFLY, multiport. 3. Intraoperative esophagogastroduodenoscopy. ANESTHESIA: Gen. local anesthetic ESTIMATED BLOOD LOSS: 5 mL SPECIMENS REMOVED: Sleeve gastrectomy and gallbladder COMPLICATIONS: None. FINDINGS: 1. Negative intraoperative esophagogastrojejunoscopy leak test. 2. No hepatomegaly or large hiatus hernia. 3. Total of 7 staplers used including 4 - 60 mm green robot emely and 3 - 60 mm blue loads used to create the gastric sleeve. 4. Sleeve gastrectomy 30 x 6 cm 5. Gallbladder removed without contamination. Patient Condition at Discharge: Good Plan - Discharge Summary New Discharge Prescriptions: No Action Omeprazole [PriLOSEC] 40 mg PO DAILY #14 cap Ondansetron Odt [Zofran Odt] 4 mg PO Q8HR PRN PRN Reason: Nausea Ergocalciferol [Vitamin D2 (1250 Mcg = 36074 Iu)] 50,000 unit PO WEEKLY Vitamin A 10,000 unit PO DAILY Albuterol Inhaler [Ventolin Hfa Inhaler] 1 - 2 puff INHALATION Q6H PRN PRN Reason: Wheezing Budesonide/Formoterol Fumarate [Symbicort 160-4.5 Mcg Inhaler] 1 puff INHALATION DAILY PRN PRN Reason: Shortness Of Breath Acetaminophen 500 mg PO Q6H PRN PRN Reason: Pain Discharge Medication List Albuterol Inhaler [Ventolin Hfa Inhaler] 1 - 2 puff INHALATION Q6H PRN 11/03/23 [History] Omeprazole [PriLOSEC] 40 mg PO DAILY #14 cap 11/06/23 [Rx] Budesonide/Formoterol Fumarate [Symbicort 160-4.5 Mcg Inhaler] 1 puff INHALATION DAILY PRN 02/21/24 [History] Acetaminophen 500 mg PO Q6H PRN 05/01/24 [History] Ondansetron Odt [Zofran Odt] 4 mg PO Q8HR PRN 05/01/24 [History] Ergocalciferol [Vitamin D2 (1250 Mcg = 90866 Iu)] 50,000 unit PO WEEKLY 05/06/24 [History] Vitamin A 10,000 unit PO DAILY 05/06/24 [History] Discharge Disposition: HOME SELF-CARE
== END 2024-04-07 14:10 | disposition home or self-care (01) | DRG 403 ==
LOC: OR 16:00 → 4SSUR 16:01 → UNDOADMIN 16:01 → 4SSUR 20:20 → UNDODISIN 04-07 14:10
PROVIDERS: ADMIT Surgery Plastic and Reconstructive Surgery; ATTEND Surgery Plastic and Reconstructive Surgery
PROC: 8E0W4CZ Robotic Assisted Procedure of Trunk Region, Percutaneous Endoscopic Approach (ICD-10-PCS; principal; 2024-04-05)
PROC: 0DB64Z3 Excision of Stomach, Percutaneous Endoscopic Approach, Vertical (ICD-10-PCS; 2024-04-05)
PROC: 0DJ08ZZ Inspection of Upper Intestinal Tract, Via Natural or Artificial Opening Endoscopic (ICD-10-PCS; 2024-04-05)
PROC: 0FT44ZZ Resection of Gallbladder, Percutaneous Endoscopic Approach (ICD-10-PCS; 2024-04-05)
DX: E66.01 Morbid (severe) obesity due to excess calories (principal); Z68.41 Body mass index [BMI] 40.0-44.9, adult; E11.9 Type 2 diabetes mellitus without complications; E78.5 Hyperlipidemia, unspecified; F31.9 Bipolar disorder, unspecified; G47.33 Obstructive sleep apnea (adult) (pediatric); I11.9 Hypertensive heart disease without heart failure; K21.9 Gastro-esophageal reflux disease without esophagitis; K76.0 Fatty (change of) liver, not elsewhere classified; K80.10 Calculus of gallbladder with chronic cholecystitis without obstruction; M16.0 Bilateral primary osteoarthritis of hip; M17.0 Bilateral primary osteoarthritis of knee; Z68.43 Body mass index [BMI] 50.0-59.9, adult; Z79.51 Long term (current) use of inhaled steroids; Z79.84 Long term (current) use of oral hypoglycemic drugs; Z82.49 Family history of ischemic heart disease and other diseases of the circulatory system; Z82.5 Family history of asthma and other chronic lower respiratory diseases; Z87.891 Personal history of nicotine dependence

== ENCOUNTER → 2024-04-12 | Outpatient (CLI) | payer OTHER ==
--- NOTE | 2024-05-08 16:31 | FL ---
Kong Myles : 1990 [id number] SINGLE CONTRAST BARIUM SWALLOW: CLINICAL HISTORY: 34-year-old male status post sleeve gastrectomy few days ago, R13.10, dysphagia TECHNIQUE: Single contrast exam performed with 50 ml [id number] contrast. Total fluoroscopy time: 44 seconds. Total images: 9. Total DAP: 15 mGycm2 FINDINGS: The patient swallowed oral contrast without difficulty or delay. Esophageal peristalsis and motility are within normal limits. There is prompt passage of contrast from the esophagus into the stomach w ith postsurgical change of sleeve gastrectomy demonstrated. There is satisfactory passage across the surgerized stomach and into the duodenum. There is no evidence of contrast extravasation to suggest l eak. No postsurgical free air. IMPRESSION: No evidence of leak or obstruction status post sleeve gastrectomy.
== END | disposition home or self-care (01) ==
LOC: RADFLMAIN 08:55
PROVIDERS: ATTEND Surgery Plastic and Reconstructive Surgery
DX: R13.10 Dysphagia, unspecified (principal); Z98.84 Bariatric surgery status
CPT/HCPCS: 74220

== ENCOUNTER → 2024-04-29 | Outpatient (CLI) | payer OTHER ==
[~2024-04-29] MED LIST changes: -ACETAMINOPHEN TAB 500 MG TAB ONE; -ALVIMOPAN 12 MG CAPSULE ONE; -DEXAMETHASONE SOD PHOSPHATE 4 MG/ML 1 ML VIAL ONE; -ENOXAPARIN 40 MG/0.4 ML SYRINGE SQ ONE; -FAMOTIDINE 20 MG/2 ML VIAL ONE; -ONDANSETRON 4 MG/2 ML VIAL ONE; -SCOPOLAMINE 1 MG/72 HR PATCH TRANSDERM ONE; +SODIUM CHLORIDE 0.9% 500 ML 500 ML in EMPTY BAG 1 BAG IV PRN
[2024-04-29 08:10] VITALS: BP 103/70; PULSE 66; RESP 16; TEMP 97.7
[2024-04-29] MEDS: SODIUM CHLORIDE 0.9% 2,000 ML IV NR (08:11)
== END ==
LOC: PROCWHC3 07:45
PROVIDERS: ATTEND Surgery Plastic and Reconstructive Surgery
DX: E86.0 Dehydration (principal)
CPT/HCPCS: 96360; 96361

== ENCOUNTER → 2024-07-10 | Outpatient (CLI) | payer OTHER ==
[2024-07-10 14:03] VITALS: BP 126/85; PULSE 75; RESP 16; TEMP 98.1; BMI 40.0
--- NOTE | 2024-07-10 14:45 | P.BASOAP ---
Subjective Progress Note Date: 07/10/24 Has vomiting with solid foods. Cannot tolerate today. He lost 37 pounds in 5 weeks. He has burning with rectum. His gallbladder is gone. He has dark yellow. He has acute cholecystitis on pathology. He is getting protein. He is not getting 75 grams daily. He forgets to eat sometimes. He is due for labs. Objective - Vital Signs Vital signs: Vital Signs Temp 98.1 F 07/10/24 13:48 Pulse 75 07/10/24 13:48 Resp 16 07/10/24 13:48 BP 126/85 07/10/24 13:48 Pulse Ox FiO2 Intake & Output 07/09/24 07/10/24 07/10/24 18:59 06:59 18:59 Weight 130.181 kg Assessment/Plan Plan: Date: 07/10/24 Initial Weight: 167.829 kg Initial BMI: 51.5 Current Weight: 130.181 kg Current BMI: 40.0 Type of Surgery: Total Volume in Band: Previous Volume: Volume Removed: Volume Added: Band Size:
== END ==
LOC: BARWHC3 13:40
PROVIDERS: ATTEND Surgery Plastic and Reconstructive Surgery
DX: Z71.3 Dietary counseling and surveillance (principal); E66.01 Morbid (severe) obesity due to excess calories; F12.90 Cannabis use, unspecified, uncomplicated; Z91.09 Other allergy status, other than to drugs and biological substances
CPT/HCPCS: 97803; G0463; 99211

== ENCOUNTER → 2024-09-23 | Outpatient (CLI) | payer OTHER ==
[2024-09-23 14:18] LABS: Partial Thromboplastin Time 24.9 sec (22.0-30.0); Prothrombin Time 11.2 sec (10.0-12.5)
[2024-09-23 16:51] LABS: HCT 44.9 % (39.6-50.0); HGB 14.4 g/dL (13.0-17.0); MCHC 32.1 g/dL (32.0-37.0); MCV 96.8 FL (80.0-97.0); Mean Platelet Volume 11.5 FL (9.5-12.2); NRBC Per 100 WBC 0 X 10*3/uL (0.00-0.01); Platelet Count 269 X 10*3/uL (140-440); RBC 4.64 X 10*6/uL (4.40-5.60); RDW 13.3 % (11.5-14.5)
[2024-09-23 18:50] LABS: % Iron Saturation 39.86 (15.00-50.00); BUN/Creat Ratio 15.83 Ratio (12.00-20.00); Blood Urea Nitrogen 9.5 mg/dL (9.0-27.0); Chol/HDL Ratio 3.01 Ratio; Glucose 92 mg/dL (70-110); Iron 110 UG/DL (65-175); LDL Cholesterol,Calculated 82.8 mg/dL (0.0-131.0); Phosphorus 2.8 mg/dL (2.4-5.1); Total Iron Binding Capacity 276 UG/DL (228-460); VLDL Calculation 17.36 mg/dL (5.00-40.00)
[2024-09-23 18:51] LABS: ALT 15 U/L (10-49); AST 16 U/L (14-35); Albumin 4.3 g/dL (3.8-4.9); Albumin/Globulin Ratio 2.26 Ratio (1.60-3.17); Alkaline Phosphatase 101 U/L (41-126); Calcium 9.3 mg/dL (8.7-10.3); Carbon Dioxide 25.1 mmol/L (21.6-31.8); Chloride 105 mmol/L (96-109); Globulin 1.9 g/dL (1.6-3.3); Potassium 4.1 mmol/L (3.5-5.5); Sodium 142 mmol/L (135-145); Total Bilirubin 0.6 mg/dL (0.3-1.2); Total Protein 6.2 g/dL (6.2-8.2)
[2024-09-23 19:12] LABS: Prealbumin 17.3 mg/dL (18.0-42.0)
[2024-09-24 15:01] LABS: Zinc, Serum 73 ug/dL (60-130)
[2024-09-25 06:19] LABS: Vitamin A 31 ug/dL (38-106)
== END | disposition home or self-care (01) ==
LOC: LABWHC1 13:03
PROVIDERS: ATTEND Surgery Plastic and Reconstructive Surgery
DX: E89.1 Postprocedural hypoinsulinemia (principal); E66.01 Morbid (severe) obesity due to excess calories; D50.8 Other iron deficiency anemias; E44.0 Moderate protein-calorie malnutrition; E45 Retarded development following protein-calorie malnutrition; E55.9 Vitamin D deficiency, unspecified; K74.1 Hepatic sclerosis; N19 Unspecified kidney failure; T56.894A Toxic effect of other metals, undetermined, initial encounter; K50.90 Crohn's disease, unspecified, without complications
CPT/HCPCS: 36415; 80053; 80061; 82306; 82525; 82607; 82728; 82746; 83036; 83540; 83550; 83735; 83970; 84100; 84134; 84255; 84425; 84443; 84590; 84630; 85027; 85610; 85730